=== PATIENT | female | born 1935 | race Caucasian/White ===

== ENCOUNTER 2020-03-24 20:00 | Inpatient (IN) ==
[2020-03-24] MEDS ORDERED: ONDANSETRON 4 MG/2 ML VIAL IV PRN (23:12)
[2020-03-24] MEDS ORDERED: ASPIRIN 325 MG TABLET PO ONE (23:20)
[2020-03-24] MEDS ORDERED: hydrALAZINE 25 MG TABLET PO PRN (23:40)
[2020-03-25 05:19] LABS: Basophils # 0.1 10*3/uL (0.0-0.2); Basophils % 0.5 % (0.0-0.8); Eosinophils # 0.2 10*3/uL (0.0-0.87); Eosinophils % 1.8 % (0.00-10.9); Hematocrit 35.2 VOL% (35.7-47.0); Hemoglobin 11.4 GM/DL (12.0-16.0); Immature Granulocytes % 0.4 %; Immature Granulocytes Absolute 0.04 #; Lymphocytes # 2.5 10*3/uL (1.4-4.0); Lymphocytes % 23.6 % (21.3-54.2); Mean Corpuscular HGB Conc 32.4 GM/DL (32-36); Mean Corpuscular Volume 91.9 FL (87-102); Mean Platelet Volume 10.3 FL (9.6-12.0); Monocytes % 8.5 % (1.7-12.7); Neutrophils % 65.2 % (38.7-73.9); Platelet Count 218 T/CUMM (130-400); Red Blood Count 3.83 MC/CUMM (3.8-5.5); Red Cell Distribution Width 13.7 % (9.3-17.3); White Blood Count 10.8 T/CUMM (4-12)
[2020-03-25 05:51] LABS: INR 1.4; PT Patient Result 14.4 SECS (9.8-11.9); Partial Thromboplastin Time 30.1 SECS (23.9-33.8)
[2020-03-25 05:57] LABS: Albumin 3.1 G/DL (3.4-5.0); Bilirubin,Direct 0.12 MG/DL (0.0-0.20); Bilirubin,Indirect 0.8 MG/DL (0.0-1.0); Bilirubin,Total 0.9 MG/DL (0.2-1.0); Calcium 8.9 MG/DL (8.5-10.1); Osmolality,Calculated 283.1 MOS/KG (273-304); Risk Ratio 2.28; Total Protein 6.8 G/DL (6.4-8.3); VLDL CHOLESTEROL 19.6 MG/DL
[2020-03-25] MEDS: ASPIRIN EC 81 MG TABLET PO SCH (09:07)
[2020-03-25] MEDS: PANTOPRAZOLE 40 MG TABLET PO SCH (09:07)
[2020-03-25] MEDS: DILTIAZEM 300 MG PO SCH (09:09)
[2020-03-25] MEDS ORDERED: WARFARIN 2 MG TABLET PO SCH (17:00)
[2020-03-25] MEDS ORDERED: WARFARIN 2 MG TABLET PO ONE (18:43)
[2020-03-25] MEDS ORDERED: ATORVASTATIN 40 MG TABLET PO SCH (21:00)
[2020-03-25] MEDS ORDERED: LOSARTAN 50MG PO SCH (21:00)
[2020-03-26 05:32] LABS: INR 1.7; PT Patient Result 17.5 SECS (9.8-11.9)
[2020-03-26 08:34] VITALS: BP 183/97
[2020-03-26] MEDS ORDERED: APIXABAN 5 MG TABLET PO SCH (09:00)
[2020-03-26] MEDS: PANTOPRAZOLE 40 MG TABLET PO SCH (09:07)
[2020-03-26] MEDS: DILTIAZEM 300 MG PO SCH (09:07)
[2020-03-26] MEDS: ASPIRIN EC 81 MG TABLET PO SCH (09:07)
[2020-03-26] MEDS ORDERED: MAGNESIUM CHLORIDE 64 MG TABLET PO SCH (09:15)
[2020-03-26] MEDS ORDERED: POTASSIUM CHLORIDE 10 MEQ TABLET PO SCH (09:30)
[2020-03-26] MEDS ORDERED: WARFARIN 2 MG TABLET PO SCH (17:00)
[2020-03-26] MEDS ORDERED: LOSARTAN 50 MG TABLET PO SCH ×2 (21:00)
== END 2020-03-26 11:03 | disposition home or self-care (01) | DRG 65 ==
LOC: N.TELES → SUATTDRO 22:06
PROVIDERS: ADMIT Internal Medicine; ATTEND Internal Medicine